=== PATIENT | male | born 1945 | race Hispanic/Latino ===

== ENCOUNTER → 2019-08-20 | Outpatient (CLI) | payer OTHER, MEDICARE ==
[~2019-08-20] MED LIST: LISI40TA4 PO; OMEP-50 PO; SIMV40TA5 PO; TAMS-1 PO
== END | disposition home or self-care (01) ==
LOC: LAB 10:45
PROVIDERS: ATTEND Internal Medicine
DX: M25.512 Pain in left shoulder (principal)
CPT/HCPCS: 36415; 82565; 84520

== ENCOUNTER → 2019-08-21 | Outpatient (CLI) | payer OTHER, MEDICARE ==
[~2019-08-21] MED LIST changes: +IOHEXOL-350 50ML VIAL IV ONE
== END | disposition home or self-care (01) ==
LOC: RAH 14:17
PROVIDERS: ATTEND Internal Medicine
DX: M19.012 Primary osteoarthritis, left shoulder (principal); M25.712 Osteophyte, left shoulder
CPT/HCPCS: 73201; Q9967

== ENCOUNTER → 2025-03-06 | Outpatient (CLI) | payer OTHER, MEDICARE ==
[~2025-03-06] MED LIST changes: -IOHEXOL-350 50ML VIAL IV ONE; -LISI40TA4 PO; +LISI40TA9 PO; -OMEP-50 PO; +OMEP20CA12 PO; +SIMV-46 PO; -SIMV40TA5 PO; -TAMS-1 PO; +TAMS-55 PO
--- NOTE | 2025-03-06 16:09 | HMCIMG ---
US SCROTUM & CONTENTS HISTORY: No additional history given. COMPARISON: None TECHNIQUE: Duplex scrotal ultrasound study was performed. FINDINGS: The right testes measures 3.8 x 2.9 x 3.2 cm. The left testes measures 4.1 x 2.7 x 2.1 cm. No evidence of intratesticular mass or abnormal calcification is seen. Normal flow is demonstrated in the testes and epididymides bilaterally. There is left epididymal cyst measuring 6 x 5 x 5 mm. Large right hydrocele is seen. Mild left hydrocele is seen. IMPRESSION: 1. No evidence of intratesticular mass is seen. 2. Normal flow is demonstrated of both testes. There is left epididymal cyst measuring 6 x 5 x 5 mm. Large right hydrocele is seen. Mild left hydrocele is seen.
== END | disposition home or self-care (01) ==
LOC: RAH 11:17
PROVIDERS: ATTEND Internal Medicine
DX: N50.3 Cyst of epididymis (principal); N43.3 Hydrocele, unspecified; R22.9 Localized swelling, mass and lump, unspecified
CPT/HCPCS: 76870